=== PATIENT | female | born 1995 | race African-American/Black ===

== ENCOUNTER 2020-01-02 05:15 | Outpatient (CLI) | payer OTHER ==
[2020-01-02 09:53] LABS: #Basophils 0.1 thou/uL (0.0-0.2); #Eosinphils 0.2 thou/uL (0.0-0.7); #Monocytes 0.7 thou/uL (0.11-0.59); #Neutrophils 3.3 thou/uL (1.40-6.50); %Basophils 0.7 % (0.0-1.0); %Eosinophils 2.3 % (0.0-10.0); %Lymphocytes 48.5 % (21.0-51.0); %Monocytes 7.9 % (0.0-10.0); %Neutrophils 40.5 % (42.0-75.0); Hemoglobin 11.1 g/dL (12.0-16.0); Mean Corpuscular HGB CONC 32.1 g/dL (32.0-36.0); Mean Corpuscular Hemoglobin 28.3 pg (27.0-31.0); Mean Corpuscular Volume 88.1 fL (78.0-98.0); Mean Platelet Volume 7.7 fL (7.4-10.4); Platelet Count 357 thou/uL (130-400); RBC Distribution Width 11.9 % (11.5-14.5); Red Blood Cell (RBC) Count 3.94 mill/uL (4.20-5.40); White Blood Cell (WBC) Count 8.3 thou/uL (4.8-10.8)
[2020-01-02 10:39] LABS: Anion Gap 13 mmol/L (10-20); BUN (Urea Nitrogen) 8 mg/dL (7.0-18.7); Calc. Creatinine Clearance 0 mL/min (70-130); Calcium 8.9 mg/dL (7.8-10.44); Carbon Dioxide 22 mmol/L (22-29); Chloride 107 mmol/L (98-107); Estimated GFR-MDRD Greater than 90; Glucose 85 mg/dL (70-105); Potassium 4.9 mmol/L (3.5-5.1); Sodium 137 mmol/L (136-145)
[2020-01-02 17:21] LABS: SARS-CoV-2 MS2 Positive; SARS-CoV-2 N Gene Negative; SARS-CoV-2 S Gene Negative; SARS-CoV-2 by NAA Not Detected (NotDetected); SARS-CoV-2 orf1ab Negative
== END 2020-01-02 05:16 | disposition home or self-care (01) ==
LOC: LABBT 05:15
PROVIDERS: ATTEND Surgery
DX: Z01.812 Encounter for preprocedural laboratory examination (principal); Z11.59 Encounter for screening for other viral diseases; L73.2 Hidradenitis suppurativa
CPT/HCPCS: 80048; 85025; 87635; U0003

== ENCOUNTER 2020-01-05 09:29 | Day surgery (SDC) | payer OTHER ==
[2020-01-02 11:49] VITALS: BMI 40.1
[2020-01-05] MEDS ORDERED: PROPOFOL 200 MG/20 ML VIAL ONE (09:48)
[2020-01-05] MEDS ORDERED: Dexamethasone 20 MG/5 ML VIAL ONE (09:48)
[2020-01-05] MEDS ORDERED: Lidocaine 1% PF 5 ML VIAL ONE (09:48)
[2020-01-05] MEDS ORDERED: Ondansetron PF 4 MG/2 ML Vial ONE (09:48)
[2020-01-05] MEDS ORDERED: Lidocaine 1% w/Epinephrine 1:100K 20 ML VIAL ONE (12:25)
[2020-01-05] MEDS ORDERED: Bupivacaine 0.25% HCL 30 ML VIAL ONE (12:25)
[2020-01-05] MEDS ORDERED: Fentanyl 100 MCG/2 ML VIAL ONE ×3 (12:27→14:09)
[2020-01-05] MEDS ORDERED: Midazolam HCl 2 mg/2 ml Vial ONE (12:28)
--- NOTE | 2020-01-05 20:14 | OP ---
DATE OF PROCEDURE: 01/05/2020 PREOPERATIVE DIAGNOSIS: Hidradenitis, chest. POSTOPERATIVE DIAGNOSIS: Hidradenitis, chest. PROCEDURE PERFORMED: Wide local excision of hidradenitis; 4 cm, 2 cm, 3 cm elliptical incisions. ANESTHESIA: General. ESTIMATED BLOOD LOSS: Minimal. COMPLICATIONS: None. SPECIMEN: Hidradenitis skin. DESCRIPTION OF PROCEDURE: The patient was taken to the operating room and laid supine on the operating room table. After general anesthetic was obtained, her chest was shaved, prepped, and draped in a sterile fashion. An elliptical incision ellipsed out, where she has open wounds to her mid breast on the right and the left. All the hidradenitis infected tissue was removed down to the fat layer. The wounds were all irrigated and closed using 3-0 Vicryl, 4-0 Monocryl, and Dermabond. The first incision was the elliptical incision that was 3 cm wide x 4 cm long, the second was 2 cm wide x 4 cm long, the third was 2 cm wide x 4 cm long incisions were closed using 3-0 Vicryl, 4-0 Monocryl, and Dermabond. The patient was sent to Recovery in stable condition. All instrument counts, needle counts, lap counts were correct. Job ID: [id number]
== END 2020-01-05 16:00 | disposition home or self-care (01) ==
LOC: SDC 09:29
PROVIDERS: ATTEND Surgery
PROC: 0JB60ZZ Excision of Chest Subcutaneous Tissue and Fascia, Open Approach (ICD-10-PCS; principal; 2020-01-05)
DX: L73.2 Hidradenitis suppurativa (principal); E66.9 Obesity, unspecified; Z68.41 Body mass index [BMI] 40.0-44.9, adult; Z79.899 Other long term (current) drug therapy
CPT/HCPCS: 88305; J0690; J1100; J2250; J2405; J2704; J3010; S0020

== ENCOUNTER 2020-03-09 07:18 | Outpatient (CLI) | payer OTHER ==
[2020-03-09 17:56] LABS: SARS-CoV-2 MS2 Positive; SARS-CoV-2 N Gene Negative; SARS-CoV-2 S Gene Negative; SARS-CoV-2 by NAA Not Detected (NotDetected); SARS-CoV-2 orf1ab Negative
== END 2020-03-09 07:19 | disposition home or self-care (01) ==
LOC: LABBT 07:18
PROVIDERS: ATTEND Surgery
DX: L73.2 Hidradenitis suppurativa (principal); Z20.828 Contact with and (suspected) exposure to other viral communicable diseases
CPT/HCPCS: 87635; U0003

== ENCOUNTER 2020-03-12 09:23 | Observation (INO) | payer OTHER ==
[2020-03-09 14:02] VITALS: BMI 40.6
[2020-03-12] MEDS ORDERED: Methylene Blue 50 MG/10 ML AMPUL ONE (10:10)
[2020-03-12] MEDS ORDERED: Bupivacaine/Epinephrine 0.25% 30 ML VIAL ONE (10:10)
[2020-03-12] MEDS ORDERED: Fentanyl 100 MCG/2 ML VIAL ONE ×3 (10:18→13:05)
[2020-03-12] MEDS ORDERED: Famotidine/PF 20 mg/2ml Vial ONE (10:18)
[2020-03-12] MEDS ORDERED: Meperidine HCl/PF 25 MG/ML VIAL ONE (10:18)
[2020-03-12] MEDS ORDERED: Rocuronium Bromide 10 MG/ML (10ML VIAL) ONE (10:20)
[2020-03-12] MEDS ORDERED: Lidocaine 1% PF 5 ML VIAL ONE (10:20)
[2020-03-12] MEDS ORDERED: Metoclopramide HCl 10 MG/2 ML VIAL ONE (10:20)
[2020-03-12] MEDS ORDERED: Ondansetron PF 4 MG/2 ML Vial ONE (10:20)
[2020-03-12] MEDS ORDERED: Succinylcholine Chloride 20 MG/ML 10 ml SYRINGE FS ONE ×2 (10:20→11:50)
[2020-03-12] MEDS ORDERED: PROPOFOL 200 MG/20 ML VIAL ONE (10:20)
[2020-03-12] MEDS ORDERED: Ketorolac Tromethamine 30 MG/ML VIAL ONE (10:20)
[2020-03-12] MEDS ORDERED: Glycopyrrolate 0.2 MG/ML 5 ML SYRINGE ONE (10:20)
[2020-03-12] MEDS ORDERED: Labetalol HCl 100 MG/20 ML VIAL ONE (10:20)
[2020-03-12] MEDS ORDERED: Dexamethasone 20 MG/5 ML VIAL ONE (10:20)
[2020-03-12] MEDS ORDERED: SUGAMMADEX SODIUM 200 MG/2 ML VIAL ONE (11:51)
[2020-03-12] MEDS ORDERED: Promethazine HCl 25 MG/ML VIAL IM PRN (13:36)
[2020-03-12] MEDS ORDERED: Ondansetron PF 4 MG/2 ML Vial IVP PRN (13:36)
[2020-03-12] MEDS ORDERED: Morphine 4 MG/ML VIAL SLOW IVP PRN (13:36)
[2020-03-12] MEDS ORDERED: Morphine 2 MG/ML VIAL SLOW IVP PRN (13:36)
[2020-03-12] MEDS ORDERED: hydrALAZINE 20 MG/ML VIAL SLOW IVP PRN (13:36)
[2020-03-12] MEDS ORDERED: Dextrose 50% Abboject 50 ML SYRINGE SLOW IVP PRN (13:36)
[2020-03-12] MEDS ORDERED: Fentanyl 100 MCG/2 ML VIAL SLOW IVP PRN ×2 (13:36)
[2020-03-12] MEDS ORDERED: HYDROcodone/Acetaminophen 7.5/325 mg Tablet PO PRN ×2 (13:36)
[2020-03-12] MEDS ORDERED: Dextrose 5% in Water 1,000 ML IV PRN (13:36)
--- NOTE | 2020-03-12 15:49 | OP ---
DATE OF PROCEDURE: 03/12/2020 PREOPERATIVE DIAGNOSIS: Complex chest hidradenitis. POSTOPERATIVE DIAGNOSIS: Complex chest hidradenitis. PROCEDURE PERFORMED: Excision of skin, subcutaneous tissue, and fat for severe nonhealing chronic hidradenitis to sternum and bilateral breasts. ANESTHESIA: General. ESTIMATED BLOOD LOSS: Minimal. COMPLICATIONS: None. SPECIMEN: Skin. BRIEF HISTORY: The patient is a 25-year-old female with a history of severe hidradenitis. She is on biologic infusional therapy and that has worked very well for her axillary and groin hidradenitis; however, her sternum and chest wall hidradenitis is severe. I previously removed smaller areas with almost immediate recurrence. She now presents for more wide local excision ultimately with skin graft down the road. DESCRIPTION OF PROCEDURE: The patient was taken to the operating room and laid supine on the operating room table. After general anesthetic was obtained, the chest was prepped and draped in a sterile fashion. All areas of severe hidradenitis to the anterior chest wall cleavage are excised down to the fat. There was one area that has some purulent material. This was all excised out. The wound was irrigated. Wound Care placed a wound VAC. The patient was sent to Recovery in stable condition. All instrument counts, needle counts, and lap counts were correct. Job ID: [id number]
[2020-03-12] MEDS ORDERED: Morphine 4 MG/ML VIAL ONE (16:11)
[2020-03-12] MEDS: Sodium Chloride 0.9% 1,000 ML IV SCH (16:16)
[2020-03-13] MEDS: Sodium Chloride 0.9% 1,000 ML IV SCH ×2 (05:16→10:31)
[2020-03-13] MEDS: Famotidine/PF 20 mg/2ml Vial SLOW IVP SCH ×2 (07:06)
[2020-03-13 08:24] VITALS: BP 115/73; TEMP 98.2
[2020-03-13] MEDS: Famotidine 20 MG TAB PO SCH ×2 (08:25)
[2020-03-13] MEDS ORDERED: Cepastat Lozenges 1 LOZ PO PRN (10:00)
--- NOTE | 2020-03-13 10:12 | DIS ---
DATE OF ADMISSION: 03/12/2020 DATE OF DISCHARGE: 03/13/2020 ADMIT DIAGNOSIS: ADMIT DIAGNOSIS: Severe hidradenitis. DISCHARGE DIAGNOSIS: Severe hidradenitis. PROCEDURES: Excision of hidradenitis by Dr. Esquivel without complication. CONDITION ON DISCHARGE: Improved. STAFF: Rashaun Esquivel MD HOSPITAL COURSE: The patient's pain is controlled on postop day #1, her home VAC was set up. She is discharged home. She will follow up in 2 weeks. Job ID: [id number]
== END 2020-03-13 13:00 | disposition home or self-care (01) ==
LOC: SDC 09:23 → 3SE 12:02
PROVIDERS: ADMIT Surgery; ATTEND Surgery
PROC: 0JBF0ZZ Excision of Left Upper Arm Subcutaneous Tissue and Fascia, Open Approach (ICD-10-PCS; principal; 2020-03-12)
PROC: 0JBD0ZZ Excision of Right Upper Arm Subcutaneous Tissue and Fascia, Open Approach (ICD-10-PCS; 2020-03-12)
DX: L73.2 Hidradenitis suppurativa (principal); Z88.8 Allergy status to other drugs, medicaments and biological substances
CPT/HCPCS: 88305; 96361; 96374; G0378; J0690; J1100; J1885; J2175; J2270; J2405; J2704; J2765; J3010; Q9968; S0028

== ENCOUNTER 2020-04-06 09:06 | Outpatient (CLI) | payer OTHER ==
[2020-04-06 14:27] LABS: BHCG - Serum Negative (NEGATIVE); Pregs Control Background? CLEAR/WHITE (CLR/WHITE); Pregs Control Bar Appear? YES (CONTROL BAR)
[2020-04-07 12:58] LABS: SARS-CoV-2 MS2 Positive; SARS-CoV-2 N Gene Negative; SARS-CoV-2 S Gene Negative; SARS-CoV-2 by NAA Not Detected (NotDetected); SARS-CoV-2 orf1ab Negative
== END 2020-04-06 09:07 | disposition home or self-care (01) ==
LOC: LABBT 09:06
PROVIDERS: ATTEND Plastic Surgery
DX: Z01.812 Encounter for preprocedural laboratory examination (principal); Z20.828 Contact with and (suspected) exposure to other viral communicable diseases
CPT/HCPCS: 84703; 87635; U0003

== ENCOUNTER 2020-04-09 09:47 | Day surgery (SDC) | payer OTHER ==
[2020-04-08 14:25] VITALS: BMI 40.6
[2020-04-09] MEDS ORDERED: Ondansetron PF 4 MG/2 ML Vial ONE (10:12)
[2020-04-09] MEDS ORDERED: PROPOFOL 200 MG/20 ML VIAL ONE (10:12)
[2020-04-09] MEDS ORDERED: Dexamethasone 20 MG/5 ML VIAL ONE (10:12)
[2020-04-09] MEDS ORDERED: Lidocaine 1% PF 5 ML VIAL ONE (10:12)
[2020-04-09] MEDS ORDERED: Bupivacaine PF 0.5% 30 ML VIAL ONE (14:11)
[2020-04-09] MEDS ORDERED: EPINEPHrine 1 MG/ML AMP ONE ×2 (14:11→14:56)
[2020-04-09] MEDS ORDERED: Fentanyl 100 MCG/2 ML VIAL ONE ×2 (14:16→17:02)
[2020-04-09] MEDS ORDERED: Bupivacaine 0.25% HCL 30 ML VIAL ONE (14:18)
[2020-04-09] MEDS ORDERED: Mineral Oil Sterile 10ML 10 ML UDCUP ONE ×2 (15:14→15:23)
[2020-04-09] MEDS ORDERED: HYDROcodone/Acetaminophen 5/325 mg Tablet ONE (17:57)
--- NOTE | 2020-04-11 19:28 | OP ---
DATE OF PROCEDURE: 04/09/2020 PREOPERATIVE DIAGNOSES: 1. Sternal hidradenitis. 2. Open wound of chest. PROCEDURES PERFORMED: 1. Debridement of chest wound in preparation for skin grafting (180 cm2) (, ). 2. Split-thickness skin graft of chest (180 cm2) ([id number], [id number]). DESCRIPTION OF PROCEDURE: The patient was prepped and draped in the usual sterile fashion in the supine position. The wound was thoroughly debrided for excess granulation tissue back to punctate bleeding. The wound was then copiously irrigated. A split-thickness skin graft was harvested from the bilateral thighs and meshed 1.5 to 1. It was secured to the chest with a combination of americo and 5-0 chromic sutures. A wound VAC was placed to secure the graft. The patient tolerated the procedure well. Job ID: [id number]
== END 2020-04-09 18:55 | disposition home or self-care (01) ==
LOC: SDC 09:47
PROVIDERS: ATTEND Plastic Surgery
PROC: 0HR5X74 Replacement of Chest Skin with Autologous Tissue Substitute, Partial Thickness, External Approach (ICD-10-PCS; principal; 2020-04-09)
DX: L73.2 Hidradenitis suppurativa (principal)
CPT/HCPCS: J0171; J0690; J1100; J2405; J2704; J3010; S0020